=== PATIENT | male | born 1960 | race Caucasian/White ===

== ENCOUNTER 2017-04-01 15:54 | Emergency (ER) | payer BC, OTHER ==
[~2017-04-01] VITALS: Ht 175.3 cm; Wt 72.0 kg
[2017-04-01 16:02] VITALS: BP 154/80; PULSE 75; RESP 16; TEMP 97.7; O2SAT 100
[2017-04-01] MEDS ORDERED: ACIP20TA19 PO (16:16)
[2017-04-01] MEDS ORDERED: VENTAER INH (16:44)
[2017-04-01] MEDS ORDERED: PRED20 PO (16:44)
--- NOTE | 2017-04-01 16:45 | PD ---
HPI Chief Complaint: Respiratory Symptoms Time Seen by Provider: 16:12 Travel History International Travel<30 days: No Contact w/Intl Traveler<30days: No Traveled to known affect area: No History of Present Illness HPI 56 -year-old male here for evaluation of an episode of stridor at 2 PM today. Patient reports the episode occurred after he started coughing. It lasted less than a minute. He reports he has had several episodes of stridor over the last 10 years. All episodes were brought on by coughing prior. All episodes lasted less than 15 seconds. He was concerned because this episode lasted longer than his previous. The symptoms resolved spontaneously. He did not take any medications to alleviate the symptoms. He reports that he had an extensive workup over 5 years ago including a scope was determined that he had acid reflux which was likely causing the bronchospasms. He is currently taking AcipHex. He is asymptomatic in the emergency room. [facility] Past Medical History Narrative Medical Significant for acid reflux Diminished Hearing: No GERD: Yes Tetanus Vaccination: Unknown Influenza Vaccination: No ?: Not Past Surgical History Surgical History: No Previous Surgery Social History Alcohol Use: Yes (DAILY WINE) Tobacco Use: No Substance Use: No Allergies-Medications (Allergen,Severity, Reaction): Coded Allergies: No Known Allergies (Verified Allergy, Unknown, 04/01/17) Reported Meds & Prescriptions Reported Meds & Active Scripts Active Reported Aciphex (Rabeprazole Sodium) 20 Mg Tab 20 Mg PO DAILY Review of Systems Except as stated in HPI: all other systems reviewed are Neg General / Constitutional: No: Fever Eyes: No: Visual changes HENT: No: Headaches Cardiovascular: No: Chest Pain or Discomfort Respiratory: No: Shortness of Breath Gastrointestinal: No: Abdominal Pain Genitourinary: No: Dysuria Physical Exam Narrative GENERAL: Well-nourished, well-developed patient. Sitting comfortably on stretcher. Speaking in full sentences SKIN: Focused skin assessment warm/dry. HEAD: Normocephalic. EYES: No scleral icterus. No injection or drainage. THROAT: No oropharyngeal edema/erythema. Uvula is midline. Airways patent. NECK: Supple, trachea midline. No JVD or lymphadenopathy. CARDIOVASCULAR: Regular rate and rhythm without murmurs, gallops, or rubs. RESPIRATORY: Breath sounds equal bilaterally. No accessory muscle use. No wheezing or stridor. GASTROINTESTINAL: Abdomen soft, non-tender, nondistended. MUSCULOSKELETAL: No cyanosis, or edema. BACK: Nontender without obvious deformity. No CVA tenderness. Data Data Last Documented VS Vital Signs Date Time Temp Pulse Resp B/P (MAP) Pulse Ox O2 Delivery O2 Flow Rate FiO2 04/01/17 16:02 97.7 75 16 154/80 (104) 100 MDM Medical Decision Making Medical Screen Exam Complete: Yes Emergency Medical Condition: Yes Differential Diagnosis Bronchospasms, reactive airway, allergic reaction Narrative Course 56-year-old male here with reported bronchospasm at 2 PM today. The episode lasted less than a minute and spontaneously resolved. He has no symptoms currently. Patient has a long-standing history of infrequent and intermittent facets of bronchospasms over the last 10 years. These episodes never required emergency room visits, intubation, hospitalization. His previous workup was done on outpatient basis which revealed GERD has a possible cause of the proximal vessels. He is currently on AcipHex for this. The patient is well- appearing. His airway is patent. His lungs sounds are clear. He has no symptoms currently. The patient will be given a short dose of steroids and bronchodilator and instructed to follow up with his PCP on Tuesday. Strict return precautions were discussed. Patient verbalizes understanding and agrees to plan Diagnosis Primary Impression: Bronchospasm Referrals: Primary Care Physician Scripts Albuterol 18 GM Inh (Ventolin Hfa 18 GM Inh) 90 Mcg/Act Aer 2 PUFF INH Q4-6H Y for SHORTNESS OF BREATH, #1 INHALER 0 Refills Prov: Rachael Lewis 04/01/17 Prednisone (Prednisone) 20 Mg Tab 40 MG PO DAILY, #8 TAB 0 Refills Take 40 mg (2 tablets) daily for 5 days Prov: Rachael Lewis 04/01/17 Disposition: 01 DISCHARGE HOME Condition: Stable Rachael Lewis Apr 01, 2017 16:44
== END 2017-04-01 16:50 | disposition home or self-care (01) ==
LOC: PHEFT 15:54
DX: J98.01 Acute bronchospasm (principal)
CPT/HCPCS: 99284